=== PATIENT | female | born 1980 | race Caucasian/White ===

== ENCOUNTER → 2023-02-10 08:45 | Outpatient (BNV) | payer OTHER, SELFPAY | PROVIDERS: Visit Provider Nurse Practitioner Psychiatric/Mental Health | DX: F31.9 Bipolar disorder, unspecified (principal); F90.2 Attention-deficit hyperactivity disorder, combined type | CPT/HCPCS: 99213; 99214 ==

== ENCOUNTER 2023-02-11 11:33 | Outpatient (REF) | payer OTHER, SELFPAY | END 2023-02-11 11:34 | disposition home or self-care (01) | LOC: HO.PHPLNP 11:33 | PROVIDERS: Visit Provider Nurse Practitioner Psychiatric/Mental Health | DX: Z13.89 Encounter for screening for other disorder (principal) ==

== ENCOUNTER 2023-02-12 11:31 | Outpatient (REF) | payer OTHER, SELFPAY ==
[2023-02-12 12:43] LABS: Amphetamine Screen Urine Not Detected (Not Detect); Barbiturates, Urine Not Detected (Not Detect); Benzodiazepines Screen Urine Not Detected (Not Detect); Cannabinoid Screen Urine POSITIVE (Not Detect); Cocaine Screen Urine Not Detected (Not Detect); Fentanyl, urine Not Detected (Not Detect); Opiate Screen Urine Not Detected (Not Detect); Phencyclidine Screen Urine Not Detected (Not Detect)
== END 2023-02-12 11:32 | disposition home or self-care (01) ==
LOC: HO.PHPLNP 11:31
PROVIDERS: Visit Provider Nurse Practitioner Psychiatric/Mental Health
DX: F11.21 Opioid dependence, in remission (principal)
CPT/HCPCS: 80307

== ENCOUNTER 2023-03-19 09:30 | Outpatient (RCR) | payer OTHER, SELFPAY ==
--- NOTE | 2023-02-10 12:22 | HO.PS.ADMBH ---
[facility] Date of Service: 02/10/23 Chief Complaint: ADHD,depression Sources of Information: patient interviewed, chart reviewed and crisis/core team assessment reviewed HPI Medical Problems Affecting Mental Status: No Narrative: Integrated clinician assessment reviewed prior to meeting with patient. Patient is a 43-year-old female, history of depression and ADHD, possible bipolar mood disorder. Was first treated in an adolescent. No treatment for some time, currently engage with providers, been working with prescriber since July 2022. Referred to [facility] by her outpatient providers. Reports chronic symptoms of depression. Struggling with structure and organization skills. Difficulty with recent events, daughter turned 18, graduated high school, and will be leaving for college. Reports finding these changes difficult to cope with, that she no longer has a sense of purpose. No history of or current SI. No HI, no AH/VH. Had neuropsych testing completed in May 2022, found to meet criteria for ADHD, combined type. Also found to meet criteria for unspecified bipolar disorder, cannabis abuse. Not working, lives with parents. Describes her father, mother and stepfather as supportive. Has struggled throughout her adult life with school, employment. Also has fibromyalgia, chronic low back pain, generalized pain. Began working with outpatient psychiatric prescriber July 2022, has since been prescribed Wellbutrin and Concerta. Currently feels ?manic ?. Had difficulty with conversation, staying focused on topic, tangental, circumstantial, pressured rapid speech during interview. Has been started with quetiapine, reports this has been improving her sleep. Feels overall that her meds are effective, however is not sure if current doses/combination may be causing manic/hypomanic symptoms. Looking forward to participating in groups while here. Past Psychiatric History: Started Ritalin age 11, stopped after high school. Recently started with Concerta. No IP, no [facility] Psychiatric provider: Amanda [facility], Therapist: Kayley Borges, Med trials: Ritalin, Depakote, lamotrigine, BuSpar Medical Evaluation Reviewed: Yes [facility] Medical History (Updated 02/10/23 @ 15:30 by Digna No) Asthma Eczema Fibromyalgia GERD (gastroesophageal reflux disease) Major depressive disorder, recurrent, moderate Raynaud disease Rosacea Surgical History H/O bladder repair surgery Hx of cholecystectomy Family History: father: ADHD Social History: Raised by mother and adoptive father. Father remarried, has 3 half siblings. 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 Grad HS, Program completed as medical research associate. Substance History: History opioid use, percocets. Received methadone x7 years, stopped taking 2 years ago. Alcohol occasional use. Daily cannabis gummies. Trauma History: None reported Meds/Allergies Meds Home Medications Medication Instructions Recorded Confirmed Type bupropion HCl 300 mg 24 hr tablet, 300 mg PO QAM 02/10/23 02/10/23 History extended release cyclobenzaprine 5 mg tablet 5 mg PO TID 02/10/23 02/10/23 History duloxetine 60 mg capsule,delayed 60 mg PO BID 02/10/23 02/10/23 History release meloxicam 15 mg tablet 15 mg PO DAILY 02/10/23 02/10/23 History methylphenidate HCl 36 mg 36 mg PO QAM 02/10/23 02/10/23 History tablet,extended release 24 hr (Concerta) omeprazole 40 mg capsule,delayed 40 mg PO DAILY 02/10/23 02/10/23 History release pregabalin 300 mg capsule 300 mg PO BID 02/10/23 02/10/23 History quetiapine 200 mg tablet 200 mg PO BEDTIME 02/10/23 02/10/23 History quetiapine 50 mg tablet (Seroquel) 50 mg PO TID PRN Anxiety 02/10/23 02/10/23 History Allergies Allergies Allergy/AdvReac Type Severity Reaction Status Date / Time Iodinated Contrast Media Allergy Eye Verified 02/10/23 14:43 [IV Contrast Dye] Swelling Sulfa (Sulfonamide Allergy Unknown Verified 02/10/23 14:43 Antibiotics) Mental Status Exam Mental Status Exam Narrative: Well-developed, well-nourished, in NAD. A&O x4 General appearance, well groomed, appropriately dressed for season and age. Musculoskeletal: No involuntary movements noted, motor activity calm, posture within normal limits. Manner/behavior: Anxious, cooperative. Speech: Fluent, unimpaired, rapid, excessive, pressured. Mood: Anxious, manic Affect: Hypomanic, difficulty focusing on 1 topic at a time. Thought process/associations: Racing. Thought content: Circumstantial, flight of ideas. Delusions: None. Hallucinations: None. Suicidality/self destructive behavior: None. Homicidality/violence: none. Reliability: Good. Memory intact. Judgment: Fair Insight: Fair MSK exam: Normal ambulation, no cogwheeling or rigidity noted. Ability to Follow Directions: Good Assessment & Plan Assessment & Plan (1) Bipolar disorder, unspecified: Status: Acute Code(s): F31.9 - Bipolar disorder, unspecified Assessment and Plan: Patient is a 43-year-old female, history of depression, ADHD, anxiety. Referred to this program by her outpatient therapist and prescriber. Reports a history of chronic depression, feeling hopeless and helpless at times. Struggling currently due to daughter graduating from high school, going away to college. Feels that she is struggling to find a purpose. Reports that she has been struggling since adolescence with symptoms. Reports that at 1 point she did not leave her home for 2-3 years, several years ago. Reports that this started prior to COV, and was related to depression and anxiety symptoms. Lives with her mother and adoptive father, whom she describes as supportive. Also has relationship with her biological father, whom is also supportive. She has struggled with education and work. Has not worked since 2011. History of opioid use, Percocets. Received methadone x7 years, stopped 2 years ago. No current use of substances reported, except for daily cannabis gummy. During initial clinician intake had reported symptoms including feeling hopeless helpless, anhedonia, isolating, disrupted sleep, decreased appetite fluctuating with over eating. She had also reported poor concentration, feeling fidgety or restless. No SI, either active or passive. No history suicide attempts. Has chronic fibromyalgia, with pain. Today she denies depression, but feels as if she is manic/hypomanic. Received treatment as a teen, including with Ritalin, several mood stabilizers. Had a period of time throughout her adulthood with no treatment. Received neuropsych testing in May 2022, which states she meets criteria for ADHD combined type, unspecified bipolar disorder. She has begun working with her current providers in July 2022. Current medications include quetiapine 200 mg at bedtime, has an additional 50 mg t.i.d. p.r.n.. Patient was encouraged to take 100 mg tomorrow morning quetiapine. She currently takes Concerta 36 mg, also receives Wellbutrin 300 mg XL. Had cholecystectomy in May 2021, is questioning whether some symptoms have worsened since that time. Reports that she feels her cognitive function is limited, states that her ADHD symptoms are ?huge for me ?. Reports that she feels the symptoms have kept her from being as productive adult. She states that she has no friends, no hobbies. States that she does not really know who she is, or what she likes. She feels that since her daughter is moving away she is experiencing avoid, with increased anxiety. Patient currently prescribed 2 antidepressants. Reports that past several months she has felt hypomanic symptoms. MARIE has been obtained. T/C to outpatient provider Amanda Coy. Discussed current symptoms, diagnoses. Provider reports that patient currently is at baseline since she began working with her in late July. Discussed possible decrease Wellbutrin. Provider reports that patient has reported this medication has been helpful. Also discussed increasing dose quetiapine to help further mood stabilization. (2) Anxiety: Status: Acute Code(s): F41.9 - Anxiety disorder, unspecified (3) Attention-deficit hyperactivity disorder, combined type: Status: Acute Code(s): F90.2 - Attention-deficit hyperactivity disorder, combined type (4) Cannabis use, unspecified, uncomplicated: Status: Acute Code(s): F12.90 - Cannabis use, unspecified, uncomplicated (5) Opioid dependence, in remission: Status: Acute Code(s): F11.21 - Opioid dependence, in remission Plan 1. Continue with current [facility] plan of care. 2. Increase a.m. quetiapine to 100 mg daily start tomorrow morning. 3. Continue other medications as currently prescribed. 4. Options going forward include increasing quetiapine, decreasing Wellbutrin, or adding mood stabilizer such as Trileptal. 5. Follow-up as per protocol. Patient educated on: diagnosis, medication risk/benefits and therapeutic strategies Informed Consent: understands Reason for continued partial hosp. stay Substantial Risk for: inability to function, rapid decompensation and med/psych decompensation Certification I certify that partial hospital treatment is medically necessary due to the symptoms and problems resulting from the patient's mental illness and the failure to treat the patient at the partial hospital level of care would likely result in the patient requiring inpatient psychiatric care which could not be prevented at a less intensive level of care. Time Spent With Patient Time: Total time managing care of this patient today __60__ minutes.
[2023-02-10 13:11] VITALS: BP 108/74; PULSE 100; TEMP 37
[2023-02-10 13:28] VITALS: BMI 37.2
--- NOTE | 2023-02-10 14:24 | PC.ADMIT ---
Patient is a 43 year old female who was referred to [facility] her mental health prescriber d/t increased depression spending a lot of her time in bed. See Integrative Assessment for more information. During the nursing assessment patient presented with loud pressured speech. Appeared hypomanic. She reports feeling increased energy and has difficulty staying still. She report her thoughts are racing. She reports prior to this she was unable to get out of bed and now feels she is on the upside of things Reports feeling manic and has never been like this before. She reports she, knows things and has ideas but can't put them in action . Patient reports her Concerta 36 mg daily dose was decreased from 2 tabs back to one tab daily. Her Wellbutrin was increased from 150 mg to 300 mg. Vicki No CNP is aware and is increasing Seroquel dose. She report being on Cymbalta and Pregabalin for her Fibromyalgia which has been helpful since she is not taking Methadone or any other opiates for her pain. Patient stated she has been prescribed Opiates for fibromyalgia pain from age 17 up until her 30's. She stated it was difficult for her to get off the medications d/t withdrawal sxs. She also reports she was prescribed Methadone for 7 years as a result and was tappered off the Methadone about 2.5 years ago around March 2020 and had a difficult time getting off this medication as well d/t withdrawal sxs. She talked about not feeling right since her gallbadder surgery. It was difficult to follow her conversation at times d/t pressured speech and going from topic to topic. Patient is alert and oriented x4. She presented as hypomanic. Denied SI or thoughts to harm herself or others. She received a copy of her safety plan and I reviewed this with her if needed. Medications reconciled with patient and patient's pharmacy. She reports taking medications as prescribed. Patient is living with her parents and 18 year old daughter who is going to college. Patient having a difficult time adjusting to this. Patient reports the last time she was employed was in 2011 and would like to be able to work at some point in her life.
--- NOTE | 2023-02-13 07:32 | HO.PHP ---
The clients case was reviewed and opened in treatment team
--- NOTE | 2023-02-13 10:03 | P.PNPSP_ITS ---
Subjective Subjective Date of Service: 02/13/23 Reason For Visit: ADHD,depression Medical Problems Affecting Mental Status: No Interim History: Reports feeling more stable, find the 100 mg quetiapine in a.m. helpful. Feels less weighed down, finding program helpful. Wants to continue to focus on coping skills and structure. No SI, no safety concerns. Continues to struggle with ADHD symptoms, finds herself lost in thoughts, difficulty carrying out an completing tasks. Medication Compliance: Intermittent (For got bedtime dose Seroquel twice earlier in week.) Side effects from medications: No Attending Groups: Yes Review of Systems Acute medical concerns: No Medical Review of Systems: unchanged Review of Systems Review of Systems Yes all other systems are reviewed and are negative Constitutional: Reports no additional constitutional complaints Mental Status Exam Mental Status Exam Narrative: Well-developed, well-nourished, in NAD. A&O x4 General appearance, well groomed, appropriately dressed for season and age. Musculoskeletal: No involuntary movements noted, motor activity calm, posture within normal limits. Manner/behavior: Anxious, cooperative. Speech: Fluent, unimpaired, excessive at times. Mood: Slightly anxious Affect: Less hypomanic, some anxiety Thought process/associations: Normal, feels though that she is getting lost in thoughts at times Thought content: Linear Delusions: None. Hallucinations: None. Suicidality/self destructive behavior: None. Homicidality/violence: none. Reliability: Good. Memory intact. Judgment: Fair Insight: Fair MSK exam: Normal ambulation, no cogwheeling or rigidity noted. Ability to Follow Directions: Good Diagnostics Vital Signs (24Hr): BMI result Body Mass Index 37.2 Assessment & Plan Assessment & Plan (1) Bipolar disorder, unspecified: Status: Acute Code(s): F31.9 - Bipolar disorder, unspecified Assessment and Plan: Reports feeling more stable, find the 100 mg quetiapine in a.m. helpful. Discussed importance of taking quetiapine 100 in the morning, 200 at bedtime, in order to further stabilize mood. Continues to have 50 mg quetiapine available as a p.r.n. during day if needed. Reviewed this medication scheduled with patient. Feels less weighed down, less depressed. Finding the Wellbutrin extremely helpful. Wants to continue to focus on coping skills and structure. States that now that her daughter is an adult and going away to college, she wants to focus on a how better to structure her day, figure out her own goals in her life going forward. No SI, no safety concerns. Continues to struggle with ADHD symptoms, finds herself lost in thoughts, difficulty carrying out an completing tasks. Recommended increasing Concerta, she was agreeable. She had taken 72 mg in the past, found it to higher dose. Discussed trying 54 mg daily. (2) Attention-deficit hyperactivity disorder, combined type: Status: Acute Code(s): F90.2 - Attention-deficit hyperactivity disorder, combined type Plan 1. Continue with current [facility] plan of care. 2. Increase concerta to 54mg daily. 3. Follow-up as per protocol. Patient educated on: diagnosis, medication risk/benefits and therapeutic strategies Informed Consent: understands Reason for contiued partial hosp. stay Substantial Risk for: inability to function and rapid decompensation Certification I certify that partial hospital treatment is medically necessary due to the sym ptoms and problems resulting from the patient's mental illness and the failure to treat the patient at the partial hospital level of care would likely result in the patient requiring inpatient psychiatric care which could not be prevented at a less intensive level of care. Total time managing care of this patient today __20__ minutes. Discharge Plan Discharge Attending provider: Ryan Kauffman Medications: New methylphenidate HCl [Concerta] 54 mg tablet extended release 24hr 54 mg PO DAILY Qty: 7 0RF Discontinued methylphenidate HCl [Concerta] 36 mg tablet extended release 24hr 36 mg PO QAM Patient Comments: Patient stated her prescriber decreased the dose from 2 tabs to 1 tab daily. No Action meloxicam 15 mg tablet 15 mg PO DAILY quetiapine 200 mg tablet 200 mg PO BEDTIME bupropion HCl 300 mg tablet extended release 24 hr 300 mg PO QAM duloxetine 60 mg capsule,delayed release(DR/EC) 60 mg PO BID pregabalin 300 mg capsule 300 mg PO BID quetiapine [Seroquel] 50 mg Tablet 50 mg PO TID PRN (Reason: Anxiety) omeprazole 40 mg capsule,delayed release(DR/EC) 40 mg PO DAILY cyclobenzaprine 5 mg tablet 5 mg PO TID
--- NOTE | 2023-02-18 09:45 | HO.PHP ---
I called and left a message for Kayley Borges [facility] re clients attending and progress in the program.
--- NOTE | 2023-02-19 12:36 | P.PNPSP_ITS ---
Subjective Subjective Date of Service: 02/19/23 Reason For Visit: ADHD,depression Interim History: Reports feeling more stable,less pressured, decreased racing thoughts; but still struggles with feeling anxious, poor concetration, easily distracted, not finishing tasks or example she will wash, dry and fold laundry or hang it up but then leave it for laong periods without putting it awazay; pt still with moderately pressured speech and overally detailed explanations.. find the 100 mg quetiapine in a.m and 200mg at bedtime helpful. She is tolerating the oncerease in concerta to 54mg. she reports it has calmed her down and she has more control over her hyperactivity and hyperverbal presentation. finding program helpful. Wants to continue to focus on coping skills and structure. No SI, no safety concerns. Continues to struggle with ADHD symptoms, finds herself lost in thoughts, difficulty carrying out an completing tasks. Medication Compliance: Yes Side effects from medications: No Attending Groups: Yes Review of Systems Acute medical concerns: No Medical Review of Systems: unchanged Review of Systems Review of Systems no changes Yes all other systems are reviewed and are negative Constitutional: Reports no additional constitutional complaints Mental Status Exam Mental Status Exam Narrative: Well-developed, well-nourished, in NAD. A&O x4 General appearance, well groomed, appropriately dressed for season and age. Musculoskeletal: No involuntary movements noted, motor activity calm, posture within normal limits. Manner/behavior: Anxious, cooperative. Speech: Fluent, unimpaired, excessive at times. Mood: Slightly anxious Affect: Less hypomanic, some anxiety Thought process/associations: Normal, feels though that she is getting lost in thoughts at times Thought content: Linear Delusions: None. Hallucinations: None. Suicidality/self destructive behavior: None. Homicidality/violence: none. Reliability: Good. Memory intact. Judgment: Fair Insight: Fair MSK exam: Normal ambulation, no cogwheeling or rigidity noted. Ability to Follow Directions: Good Diagnostics Vital Signs (24Hr): BMI result Body Mass Index 37.2 Assessment & Plan Assessment & Plan (1) Bipolar disorder, unspecified: Status: Acute Code(s): F31.9 - Bipolar disorder, unspecified Assessment and Plan: Discussed taking quetiapine 100 in the morning, 50mg at noon and 200 at bedtime, in order to further stabilize mood. Continues to have 50 mg quetiapine available as a p.r.n. during day if needed. Reviewed this medication scheduled with patient. She feels she will be able to take TID and that this would be helpful for anxiety/mood. Feels less depressed. Finding the Wellbutrin extremely helpful. Wants to continue to focus on coping skills and structure. States that now that her daughter is an adult and going away to college, she wants to focus on a how better to structure her day, figure out her own goals in her life going forward. No SI, no safety concerns. Continues to struggle with ADHD symptoms, finds herself lost in thoughts, difficulty carrying out an completing tasks. She had taken concerta 72 mg in the past, found it too high of a dose. (2) Attention-deficit hyperactivity disorder, combined type: Status: Acute Code(s): F90.2 - Attention-deficit hyperactivity disorder, combined type Plan 1. Continue with current [facility] plan of care. 2. Increase seroqule to 100mg in am , 50 mg at noon and 200mg at bedtime 3. Follow-up as per protocol. Patient educated on: diagnosis, medication risk/benefits and therapeutic strategies Informed Consent: understands and further education needed Reason for contiued partial hosp. stay Substantial Risk for: harm to self, inability to function and rapid decompensation Certification I certify that partial hospital treatment is medically necessary due to the symptoms and problems resulting from the patient's mental illness and the failure to treat the patient at the partial hospital level of care would likely result in the patient requiring inpatient psychiatric care which could not be prevented at a less intensive level of care. Total time managing care of this patient today __50__ minutes. Discharge Plan Discharge Attending provider: Ryan Kauffman Medications: New methylphenidate HCl [Concerta] 54 mg tablet extended release 24hr 54 mg PO DAILY Qty: 7 0RF quetiapine [Seroquel] 50 mg tablet 50 mg PO TID Qty: 90 0RF Discontinued methylphenidate HCl [Concerta] 36 mg tablet extended release 24hr 36 mg PO QAM Patient Comments: Patient stated her prescriber decreased the dose from 2 tabs to 1 tab daily. No Action meloxicam 15 mg tablet 15 mg PO DAILY quetiapine 200 mg tablet 200 mg PO BEDTIME bupropion HCl 300 mg tablet extended release 24 hr 300 mg PO QAM duloxetine 60 mg capsule,delayed release(DR/EC) 60 mg PO BID pregabalin 300 mg capsule 300 mg PO BID quetiapine [Seroquel] 50 mg Tablet 50 mg PO TID PRN (Reason: Anxiety) omeprazole 40 mg capsule,delayed release(DR/EC) 40 mg PO DAILY cyclobenzaprine 5 mg tablet 5 mg PO TID Stand Alone Forms: Patient Portal Discharge page
--- NOTE | 2023-02-24 16:42 | HO.PHP ---
PHP staff met with Tricia to review her insurance. PHP staff informed Tricia that she currently has [employer] but no longer has [employer]. PHP staff explored if Tricia was aware of this. Tricia noted that she wasn't aware and wasn't sure if it had something to do with her daughter being removed from her plan. Tricia noted that she would have her mother contact the insurance company to get clarification. Tricia informed PHP staff that her mother spoke to the insurance company and relayed the same information the PHP staff member stated. PHP staff disclosed her [employer] is still active but she needs to pick a plan under that [employer] umbrella. PHP staff provided psychoeducation around the insurance companies under that umbrella. Tricia was receptive and stated that she will call [facility] after program to set up a plan. PHP staff was receptive.
--- NOTE | 2023-02-26 14:06 | HO.PHPPROGNO ---
Subjective Subjective Date of Service: 02/26/23 Reason For Visit: ADHD,depression Interim History: Reports feeling more stable,less pressured, decreased racing thoughts; but still struggles with feeling anxious, poor concentration, easily distracted, not finishing tasks. she reports the increasse in seroqule helped her mood and the increase in concerta helped ADHD symptoms including distractibility, forgetfulness and hyperactivity. she would like to try an increase in both as she feels it may be more helpful. she tells me she locked her keys in her car last week despite taking the concerta; she also was forgetful at imes and easily distracted; She is tolerating the increase in concerta to 54mg. she reports it has calmed her down and she has more control over her hyperactivity and hyperverbal presentation. she is finding program helpful. Wants to continue to focus on coping skills and structure. No SI, no safety concerns. Continues to struggle with ADHD symptoms, finds herself lost in thoughts, difficulty carrying out and completing tasks. Medication Compliance: Yes Side effects from medications: No Attending Groups: Yes Review of Systems Acute medical concerns: No Medical Review of Systems: unchanged Review of Systems Review of Systems no changes Yes all other systems are reviewed and are negative Constitutional: Reports no additional constitutional complaints Mental Status Exam Mental Status Exam Narrative: Well-developed, well-nourished, in NAD. A&O x4 General appearance, well groomed, appropriately dressed for season and age. Musculoskeletal: No involuntary movements noted, motor activity calm, posture within normal limits. Manner/behavior: Anxious, cooperative. Speech: Fluent, unimpaired, excessive at times. Mood: Slightly anxious Affect: Less hypomanic, some anxiety Thought process/associations: Normal, feels though that she is getting lost in thoughts at times Thought content: Linear Delusions: None. Hallucinations: None. Suicidality/self destructive behavior: None. Homicidality/violence: none. Reliability: Good. Memory intact. Judgment: Fair Insight: Fair MSK exam: Normal ambulation, no cogwheeling or rigidity noted. Ability to Follow Directions: Good Diagnostics Vital Signs (24Hr): BMI result Body Mass Index 37.2 Assessment & Plan Assessment & Plan (1) Bipolar disorder, unspecified: Status: Acute Code(s): F31.9 - Bipolar disorder, unspecified Assessment and Plan: Discussed taking quetiapine 100 in the morning, 100mg at noon and 200 at bedtime, in order to further stabilize mood. Continues to have 50 mg quetiapine available as a p.r.n. during day if needed. Reviewed this medication scheduled with patient. She feels she will be able to take TID and that this would be helpful for anxiety/mood. Feels less depressed. Finding the Wellbutrin extremely helpful. Wants to continue to focus on coping skills and structure. States that now that her daughter is an adult and going away to college, she wants to focus on a how better to structure her day, figure out her own goals in her life going forward. No SI, no safety concerns. Continues to struggle with ADHD symptoms, finds herself lost in thoughts, difficulty carrying out an completing tasks. She had taken concerta 72 mg in the past, found it too high of a dose but she was not on mood stabilizer at the time. (2) Attention-deficit hyperactivity disorder, combined type: Status: Acute Code(s): F90.2 - Attention-deficit hyperactivity disorder, combined type Plan 1. Continue with current [facility] plan of care. 2. Increase seroqule to 100mg in am, 100 mg at noon and 200mg at bedtime 3. increase concerta to 72 mg qam 4. Follow-up as per protocol. Patient educated on: diagnosis, medication risk/benefits and therapeutic strategies Informed Consent: understands and further education needed Certification I certify that partial hospital treatment is medically necessary due to the symptoms and problems resulting from the patient's mental illness and the failure to treat the patient at the partial hospital level of care would likely result in the patient requiring inpatient psychiatric care which could not be prevented at a less intensive level of care. Total time managing care of this patient today ___40_ minutes. Discharge Plan Discharge Attending provider: Ryan Kauffman Medications: New quetiapine [Seroquel] 50 mg tablet 50 mg PO TID Qty: 90 0RF methylphenidate HCl [Concerta] 36 mg tablet extended release 24hr 72 mg PO DAILY Qty: 40 0RF Rx Instructions: Partial Fill upon patient request. Discontinued methylphenidate HCl [Concerta] 36 mg tablet extended release 24hr 36 mg PO QAM Patient Comments: Patient stated her prescriber decreased the dose from 2 tabs to 1 tab daily. No Action meloxicam 15 mg tablet 15 mg PO DAILY quetiapine 200 mg tablet 200 mg PO BEDTIME bupropion HCl 300 mg tablet extended release 24 hr 300 mg PO QAM duloxetine 60 mg capsule,delayed release(DR/EC) 60 mg PO BID pregabalin 300 mg capsule 300 mg PO BID quetiapine [Seroquel] 50 mg Tablet 50 mg PO TID PRN (Reason: Anxiety) omeprazole 40 mg capsule,delayed release(DR/EC) 40 mg PO DAILY cyclobenzaprine 5 mg tablet 5 mg PO TID Stand Alone Forms: Patient Portal Discharge page
--- NOTE | 2023-02-27 14:21 | PC.NURSE ---
This RN was notified by patient that she will run out of Seroquel this weekend. Patient states per MEDICAL INTERN instruction yesterday 02/26/23 she was to increase her scheduled Seroquel to 100mg twice daily take in AM and afternoon and continue with 200mg dose at bedtime. This RN notified Nancy Stanford NP who had seen patient on 02/26/23 and MEDICAL INTERN confirmed those increases and will send scripts to pharmacy today. Patient medication list updated.
--- NOTE | 2023-03-05 21:13 | P.PNPSP_ITS ---
Subjective Subjective Date of Service: 03/05/23 Reason For Visit: ADHD,depression Healthcare Proxy: No Guardianship: No Medical Problems Affecting Mental Status: No Interim History: Reports feeling more stable,less pressured, decreased racing thoughts;she presents much calmer. she is less anxious. She is still struggling with poor concentration, easily distracted, not finishing tasks. She is very forgetful. she is tolerating the concerta but the increase has not seemed to help her focus or concentration. concerta helped a little with ADHD symptoms including distractibility, forgetfulness and hyperactivity.She wonders if a change in medicatio may help her ADHD more. she is finding program helpful. Wants to continue to focus on coping skills and structure. No SI, no safety concerns. Continues to struggle with ADHD symptoms, finds herself lost in thoughts, difficulty carrying out and completing tasks. Medication Compliance: Yes Side effects from medications: No Attending Groups: Yes Review of Systems Acute medical concerns: No Medical Review of Systems: unchanged Review of Systems Review of Systems no changes Yes all other systems are reviewed and are negative Constitutional: Reports no additional constitutional complaints Mental Status Exam Mental Status Exam Narrative: Well-developed, well-nourished, in NAD. A&O x4 General appearance, well groomed, appropriately dressed for season and age. Musculoskeletal: No involuntary movements noted, motor activity calm, posture within normal limits. Manner/behavior: calm, cooperative. Speech: Fluent, unimpaired, excessive at times. Mood: euthymic Affect:normal range; no hypomania Thought process/associations: Normal, feels though that she is getting lost in thoughts at times Thought content: Linear Delusions: None. Hallucinations: None. Suicidality/self destructive behavior: None. Homicidality/violence: none. Reliability: Good. Memory intact. Judgment: Fair Insight: Fair MSK exam: Normal ambulation, no cogwheeling or rigidity noted. Ability to Follow Directions: Good Diagnostics Vital Signs (24Hr): BMI result Body Mass Index 37.2 Assessment & Plan Assessment & Plan (1) Bipolar disorder, unspecified: Status: Acute Code(s): F31.9 - Bipolar disorder, unspecified Assessment and Plan: assessment: 43 yo woman with bipolar disorder and ADHD; taking quetiapine 100 in the morning, 100mg at noon and 200 at bedtime, in order to further stabilize mood. Continues to have 50 mg quetiapine available as a p.r.n. during day if needed. Reviewed this medication scheduled with patient. She feels she will be able to take TID and that this would be helpful for anxiety/mood. Feels less depressed. Finding the Wellbutrin extremely helpful. Wants to continue to focus on coping skills and structure. States that now that her daughter is an adult and going away to college, she wants to focus on a how better to structure her day, figure out her own goals in her life going forward. No SI, no safety concerns.Continues to struggle with ADHD symptoms, finds herself lost in thoughts, difficulty carrying out an completing tasks. Discussed options for ADHD treatment including risks vs benefits of adderall. (2) Attention-deficit hyperactivity disorder, combined type: Status: Acute Code(s): F90.2 - Attention-deficit hyperactivity disorder, combined type Plan 1. Continue with current [facility] plan of care. 2. Continue seroqule to 100mg in am, 100 mg at noon and 200mg at bedtime 3.stop concerta to 72 mg qam 4. trial of adderall 10 mg BID 4. Follow-up as per protocol. Patient educated on: diagnosis, medication risk/benefits and therapeutic strategies Informed Consent: understands and further education needed Reason for contiued partial hosp. stay Substantial Risk for: harm to self, inability to function and rapid decompensation Certification I certify that partial hospital treatment is medically necessary due to the symptoms and problems resulting from the patient's mental illness and the failure to treat the patient at the partial hospital level of care would likely result in the patient requiring inpatient psychiatric care which could not be prevented at a less intensive level of care. Total time managing care of this patient today __15__ minutes. Discharge Plan Discharge Attending provider: Ryan Kauffman Additional Instructions: Kayley Borges LM 03/24, Amanda Coy NP 04/01 Medications: New quetiapine [Seroquel XR] 150 mg tablet extended release 24 hr 150 mg PO BEDTIME Qty: 30 0RF Discontinued methylphenidate HCl [Concerta] 36 mg tablet extended release 24hr 36 mg PO QAM Patient Comments: Patient stated her prescriber decreased the dose from 2 tabs to 1 tab daily. quetiapine [Seroquel] 50 mg Tablet 50 mg PO TID PRN (Reason: Anxiety) No Action meloxicam 15 mg tablet 15 mg PO DAILY quetiapine 200 mg tablet 200 mg PO BEDTIME bupropion HCl 300 mg tablet extended release 24 hr 300 mg PO QAM duloxetine 60 mg capsule,delayed release(DR/EC) 60 mg PO BID pregabalin 300 mg capsule 300 mg PO BID omeprazole 40 mg capsule,delayed release(DR/EC) 40 mg PO DAILY cyclobenzaprine 5 mg tablet 5 mg PO TID Stand Alone Forms: Patient Portal Discharge page Patient Education: Bipolar Disorder (DC), Generalized Anxiety Disorder (ED), Help Prevent Suicide (DC), Psychotic Disorder (DC) Telehealth Telehealth Location of provider rendering services: other Location of patient: other ([facility] ) Patient Identification confirmed using: Name, : Yes Telehealth method: video Patient verbally consented to treatment: Yes Patient verbally consented to billing insurance company: Yes Patient informed of any privacy concerns related to visit: Yes Minutes spent on Phone/Video with Pt.: 15
--- NOTE | 2023-03-10 14:13 | HO.PHP ---
I met with the client this morning to discuss her discharge plans. She has not heard from Aleksey Naqvi. I did email a referral to him last week. We talked about her plans to stay with her therapist and to ask her therapist to work with CBT handouts. I then called Aleksey Naqvi and his co worker and left both a vm to call me back regarding the referral.
--- NOTE | 2023-03-10 14:17 | HO.PHP ---
I met with Tricia this afternoon to discuss extending her stay because her medication is being titrated and because she does not yet have an appointment for day treatment.
--- NOTE | 2023-03-12 08:16 | HO.PHP ---
I resent a referral to Aleksey Naqvi for day treatment at the [facility]
--- NOTE | 2023-03-12 10:27 | HO.PHPPROGNO ---
Subjective Subjective Date of Service: 03/12/23 Reason For Visit: ADHD,depression Healthcare Proxy: No Guardianship: No Medical Problems Affecting Mental Status: No Interim History: pt tried adderall IR 10 mg was ineffective but 20 mg BID was more helpful without side effects; she has been able to stay focused more easily; she has been finishing task more esily; finally washed, foled and put away laundry which she has nto done in months. she does feel the seroquel is a bit more sedating and wonders about switching to XR. we discussed pros and cons of IR vs XR seroqule and expected side effects and duration. we also discussed switch pt to XR adderall with a IR dose inlate afternoon if needed; we reviewed side effects and how to manage including using sun block, staying hydrated and having access to cooling environment when hot temps outdoors. Medication Compliance: Yes Side effects from medications: No Attending Groups: Yes Review of Systems Acute medical concerns: No Medical Review of Systems: unchanged Review of Systems Review of Systems no changes Yes all other systems are reviewed and are negative Constitutional: Reports no additional constitutional complaints Mental Status Exam Mental Status Exam Narrative: Well-developed, well-nourished, in NAD. A&O x4 General appearance, well groomed, appropriately dressed for season and age. Musculoskeletal: No involuntary movements noted, motor activity calm, posture within normal limits. Manner/behavior: calm, cooperative. Speech: Fluent, unimpaired, excessive at times. Mood: euthymic Affect:normal range; no hypomania Thought process/associations: Normal, feels though that she is getting lost in thoughts at times Thought content: Linear Delusions: None. Hallucinations: None. Suicidality/self destructive behavior: None. Homicidality/violence: none. Reliability: Good. Memory intact. Judgment:good Insight: good MSK exam: Normal ambulation, no cogwheeling or rigidity noted. Ability to Follow Directions: Good Diagnostics Vital Signs (24Hr): BMI result Body Mass Index 37.2 Assessment & Plan Assessment & Plan (1) Bipolar disorder, unspecified: Status: Acute Code(s): F31.9 - Bipolar disorder, unspecified Assessment and Plan: assessment: 43 yo woman with bipolar disorder and ADHD; taking quetiapine 100 in the morning, 100mg at noon and 200 at bedtime, in order to further stabilize mood. Continues to have 50 mg quetiapine available as a p.r.n. during day if needed. Reviewed this medication scheduled with patient. She feels taking meds TID is difficult Feels less depressed. Finding the Wellbutrin extremely helpful. Wants to continue to focus on coping skills and structure. States that now that her daughter is an adult and going away to college, she wants to focus on a how better to structure her day, figure out her own goals in her life going forward. No SI, no safety concerns.Continues to struggle with ADHD symptoms, finds herself lost in thoughts, difficulty carrying out an completing tasks. Discussed options for ADHD treatment including risks vs benefits of adderall. (2) Attention-deficit hyperactivity disorder, combined type: Status: Acute Code(s): F90.2 - Attention-deficit hyperactivity disorder, combined type Plan 1. Continue with current [facility] plan of care. 2. take seroqule XR 150 mg at bedtime and seroqule IR 200mg at bedtime 3.change adderall to XR 30mf in am daily 4. add adderall 15 mg at 4pm if needed for adhd symptoms . Follow-up as per protocol. Patient educated on: diagnosis, medication risk/benefits and therapeutic strategies Informed Consent: understands and further education needed Reason for contiued partial hosp. stay Substantial Risk for: inability to function and rapid decompensation Certification I certify that partial hospital treatment is medically necessary due to the symptoms and problems resulting from the patient's mental illness and the failure to treat the patient at the partial hospital level of care would likely result in the patient requiring inpatient psychiatric care which could not be prevented at a less intensive level of care. Total time managing care of this patient today _30___ minutes. Discharge Plan Discharge Attending provider: Ryan Kauffman Additional Instructions: Kayley Borges [facility] 03/24, Amanda Coy [employer]ENG[employer] APPRENTICE 04/01 Medications: New quetiapine [Seroquel XR] 150 mg tablet extended release 24 hr 150 mg PO BEDTIME Qty: 30 0RF Discontinued methylphenidate HCl [Concerta] 36 mg tablet extended release 24hr 36 mg PO QAM Patient Comments: Patient stated her prescriber decreased the dose from 2 tabs to 1 tab daily. quetiapine [Seroquel] 50 mg Tablet 50 mg PO TID PRN (Reason: Anxiety) No Action meloxicam 15 mg tablet 15 mg PO DAILY quetiapine 200 mg tablet 200 mg PO BEDTIME bupropion HCl 300 mg tablet extended release 24 hr 300 mg PO QAM duloxetine 60 mg capsule,delayed release(DR/EC) 60 mg PO BID pregabalin 300 mg capsule 300 mg PO BID omeprazole 40 mg capsule,delayed release(DR/EC) 40 mg PO DAILY cyclobenzaprine 5 mg tablet 5 mg PO TID Stand Alone Forms: Patient Portal Discharge page Patient Education: Bipolar Disorder (DC), Generalized Anxiety Disorder (ED), Help Prevent Suicide (DC), Psychotic Disorder (DC)
--- NOTE | 2023-03-19 13:37 | P.PNPSP_ITS ---
Subjective Subjective Date of Service: 03/19/23 Reason For Visit: ADHD,depression Interim History: pt taking adderall XR 30 mg QAM and 15 mg IR adderall at 4 pm when she remembers. she is still struggling wit ADHD symptoms; she has missed [place] exit due [place] when driving, she has locked her keys in car twice, she has forgotten things she needs when she leaves her home in the morning. She is doing well on the seroqule with improved mood stability. no side effects reported; she would like to trial Focalin which we talked about as an option. she will follow up with outpatient provider. we reviewed side effects and how to manage including using sun block, staying hydrated and having access to cooling environment when hot temps outdoors. She is feeling ready for discharge. Medication Compliance: Yes Side effects from medications: No Attending Groups: Yes Review of Systems Acute medical concerns: No Medical Review of Systems: unchanged Review of Systems Review of Systems no changes Yes all other systems are reviewed and are negative Constitutional: Reports no additional constitutional complaints Mental Status Exam Mental Status Exam Narrative: Well-developed, well-nourished, in NAD. A&O x4 General appearance, well groomed, appropriately dressed for season and age. Musculoskeletal: No involuntary movements noted, motor activity calm, posture within normal limits. Manner/behavior: calm, cooperative. Speech: Fluent, unimpaired, excessive at times. Mood: euthymic Affect:normal range; no hypomania Thought process/associations: Normal, feels though that she is getting lost in thoughts at times Thought content: Linear Delusions: None. Hallucinations: None. Suicidality/self destructive behavior: None. Homicidality/violence: none. Reliability: Good. Memory intact. Judgment:good Insight: good MSK exam: Normal ambulation, no cogwheeling or rigidity noted. Ability to Follow Directions: Good Diagnostics Vital Signs (24Hr): BMI result Body Mass Index 37.2 Assessment & Plan Assessment & Plan (1) Bipolar disorder, unspecified: Status: Acute Code(s): F31.9 - Bipolar disorder, unspecified Assessment and Plan: assessment: 43 yo woman with bipolar disorder and ADHD; taking quetiapine 100 in the morning, 100mg at noon and 200 at bedtime, in order to further stabilize mood. Continues to have 50 mg quetiapine available as a p.r.n. during day if needed. Reviewed this medication scheduled with patient. She feels taking meds TID is difficult Feels less depressed. Finding the Wellbutrin extremely helpful. Wants to continue to focus on coping skills and structure. States that now that her daughter is an adult and going away to college, she wants to focus on a how better to structure her day, figure out her own goals in her life going forward. No SI, no safety concerns.Continues to struggle with ADHD symptoms, finds herself lost in thoughts, difficulty carrying out an completing tasks. Discussed options for ADHD treatment including risks vs benefits of adderall. (2) Attention-deficit hyperactivity disorder, combined type: Status: Acute Code(s): F90.2 - Attention-deficit hyperactivity disorder, combined type Plan 1. Continue with current [facility] plan of care. 2. take seroqule XR 150 mg at bedtime and seroqule IR 200mg at bedtime 3.stop adderall 4. Trial Focalin XR 35 mg qam for adhd symptoms 5. Follow-up with outpatient provider . Patient educated on: diagnosis, medication risk/benefits and therapeutic strategies Informed Consent: understands Reason for contiued partial hosp. stay Substantial Risk for: stable for discharge Certification I certify that partial hospital treatment is medically necessary due to the symptoms and problems resulting from the patient's mental illness and the failure to treat the patient at the partial hospital level of care would likely result in the patient requiring inpatient psychiatric care which could not be prevented at a less intensive level of care. Total time managing care of this patient today __45__ minutes. Discharge Plan Discharge Attending provider: Ryan Kauffman Additional Instructions: Kayley Borges [facility] 03/24, Amanda Coy [employer] 04/01 Medications: New quetiapine [Seroquel XR] 150 mg tablet extended release 24 hr 150 mg PO BEDTIME Qty: 30 0RF Discontinued methylphenidate HCl [Concerta] 36 mg tablet extended release 24hr 36 mg PO QAM Patient Comments: Patient stated her prescriber decreased the dose from 2 tabs to 1 tab daily. quetiapine [Seroquel] 50 mg Tablet 50 mg PO TID PRN (Reason: Anxiety) No Action meloxicam 15 mg tablet 15 mg PO DAILY quetiapine 200 mg tablet 200 mg PO BEDTIME bupropion HCl 300 mg tablet extended release 24 hr 300 mg PO QAM duloxetine 60 mg capsule,delayed release(DR/EC) 60 mg PO BID pregabalin 300 mg capsule 300 mg PO BID omeprazole 40 mg capsule,delayed release(DR/EC) 40 mg PO DAILY cyclobenzaprine 5 mg tablet 5 mg PO TID Stand Alone Forms: Patient Portal Discharge page Patient Education: Bipolar Disorder (DC), Generalized Anxiety Disorder (ED), Help Prevent Suicide (DC), Psychotic Disorder (DC)
--- NOTE | 2023-03-20 17:17 | HO.PHP ---
I completed a form Tricia neville in that needed a jump iron machine presser to sign. It was part of her disability paperwork.
--- NOTE | 2023-03-20 17:19 | HO.PHP ---
I called and left a message with the clients therapist re discharge from program and dc plans.
--- NOTE | 2023-03-23 10:13 | PC.NURSE ---
Patient discharged from [facility] on 03/19/23. Discharge routine, patient states she is ready for discharge. Patient denies SI, no plan and no intent. Patient seen today by Jazz Barreto NP. Discharge plan including discharge medications reviewed with patient who states understanding. Patient discharged to out patient providers. List of discharged medications sent to out patient providers.
== END 2023-03-19 23:59 | disposition home or self-care (01) ==
LOC: HO.PHPA 09:30
PROVIDERS: Visit Provider Psychiatry & Neurology Psychiatry
DX: F31.9 Bipolar disorder, unspecified (principal); F41.9 Anxiety disorder, unspecified; F90.2 Attention-deficit hyperactivity disorder, combined type; F12.90 Cannabis use, unspecified, uncomplicated; F11.21 Opioid dependence, in remission; Z79.899 Other long term (current) drug therapy
CPT/HCPCS: 90791; 90853

== ENCOUNTER 2025-08-03 10:30 | Outpatient (RCR) | payer OTHER, SELFPAY ==
[2025-07-17 09:49] VITALS: BMI 31.6
[2025-07-17 10:18] VITALS: BP 80/58; PULSE 80; TEMP 36.7
--- NOTE | 2025-07-17 11:51 | HO.PS.ADMBH ---
HPI Date of Service: 07/17/25 Chief Complaint: ADHD,depression,panic attacks Sources of Information: patient interviewed, chart reviewed and crisis/core team assessment reviewed HPI Narrative: Patient is a 45 yo female with history depression and ADHD, possible bipolar mood disorder, fibromyalgia, medical marijuana, referred to PHP by her therapist/med provider due to persistent panic attacks. She has been on risperidone for many years at 2 mg qhs to target Bipolar disorder, PTSD. Over the summer she began waking during the night in a panic attack (feeling restless, chest tightness, SOB, paliptations) about 2 hrs after onset of sleep. These eventually abated, but started occurring randomly during the day. Sometimes she feels she is in a panic attack for many hours and sometimes the whole day. Reports having considerable anticipitory anxiety over potentially having a panic attack. Her provider reportedly has her taking 1 mg q 2 hours x 2 doses, and 2 mg after 20 min into panic attack. She reportedly takes all 4 mg of risperidone within a short period. They seem shorter but I dont feel any better . She would be open to taking something and has taken clonazepam in the past which was helpful although her provider has not been open to this and encourages her to utilize coping skills and desnsitization practices. Initial Assessment reviewed with patient, including HPI, PPH, SH, Substance use hx,Trauma hx,? please refer to note for full details. Patient has a history of chronic symptoms of depression and has struggles with low energy and obesity. She reports losing over 100 lbs of weight over the past. She lost a lot of weight over the summer as well (and I mention perhaps these panic attacks may have been triggered by maintaining current dose of 2 mg risperidone without change, despite steep weight loss. She also complains of truggles with structure and organization skills. No history of or current SI. No HI, no AH/VH. Had neuropsych testing completed in May 2022, found to meet criteria for ADHD, combined type. Also found to meet criteria for unspecified bipolar disorder, cannabis abuse. Has struggled throughout her adult life with school, employment. Also has fibromyalgia, chronic low back pain, generalized pain. Was on methadone 7 years but this was stopped when her provider left the office about 4 5 years ago. She is now on Suboxone more recently for for pain management. Past Psychiatric History: Started Ritalin age 11, stopped after high school. Recently started with Concerta. No IP, no PHP Psychiatric provider: Amanda Coy, [facility], Therapist: Kayley Borges, Med trials: Ritalin, Depakote, lamotrigine, BuSpar Previous trials: Trazodone, Effexor, Cymbalta, BuSpar, Wellbutrin, lamotrigine, Depakote, Seroquel, Risperdal, Savella, clonidine, lorazepam, clonazepam, gabapentin, Lyrica CURRENT MEDICATIONS: [facility] Medical History (Updated 02/19/23 @ 08:37 by Deanna iMjares RN) Spasmodic torticollis Migraine Hyperlipidemia with low HDL Major depressive disorder, recurrent, moderate Rosacea Asthma GERD (gastroesophageal reflux disease) Eczema Raynaud disease Fibromyalgia Narrative: On GLP-1 for obesity Surgeries: s/p resection of polymastia in 03/2005, s/p bone spurs Seizures: denies Concussions/TBI: denies LMP: 10/2024 Perimenopausal Ht: 5'7 Wt: 197 lbs ALL: sulfa, IV media contrast Surgical History H/O bladder repair surgery Hx of cholecystectomy Family History: father: ADHD Social History: Raised by mother and adoptive father. Father remarried, has 3 half siblings. 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 Grad HS, Program completed as hospital medical biller. Trauma History: None reported Diagnostics Vital Signs (24Hr): Vital Signs - 24 hr 07/17/25 10:18 Temperature 98.1 F Pulse Rate 80 Blood Pressure 80/58 L BMI result Body Mass Index 31.6 Meds/Allergies Meds Home Medications ?Medication ?Instructions ?Recorded ?Confirmed ?Type duloxetine 60 mg capsule,delayed 60 mg PO BID 02/10/23 07/17/25 History release pregabalin 300 mg capsule 300 mg PO BID 02/10/23 07/17/25 History buprenorphine 20 mcg/hour weekly 1 patch topical QWEEK 07/17/25 07/17/25 History transdermal patch (Butrans) dexmethylphenidate 35 mg 35 mg PO QAM 07/17/25 07/17/25 History capsule,extended release [id number] estradiol 0.05 mg-norethindrone 1 patch transdermal DIRECTED 07/17/25 07/17/25 History 0.14 mg/24 hr semiwkly transderm patch (CombiPatch) oxaprozin 600 mg tablet 1,200 mg PO DAILY 07/17/25 07/17/25 History quetiapine 200 mg tablet,extended 200 mg PO BEDTIME 07/17/25 07/17/25 History release 24 hr quetiapine 50 mg tablet,extended 50 mg PO BEDTIME 07/17/25 07/17/25 History release 24 hr riboflavin (vitamin B2) 400 mg 400 mg PO DAILY 07/17/25 07/17/25 History tablet rizatriptan 5 mg tablet See Rx Instructions .Route .COMPLEX 07/17/25 07/17/25 History tirzepatide (weight loss) 5 mg/0.5 5 mg subcut QWEEK 07/17/25 07/17/25 History mL subcutaneous pen injector (Zepbound) topiramate 50 mg tablet 50 mg PO BID PRN migraine 07/17/25 07/17/25 History trazodone 100 mg tablet 200 mg PO BEDTIME 07/17/25 07/17/25 History Allergies Allergies Allergy/AdvReac Type Severity Reaction Status Date / Time Iodinated Contrast Media (IV Allergy Eye Verified 02/10/23 14:43 Contrast Dye) Swelling Sulfa (Sulfonamide Allergy Unknown Verified 02/10/23 14:43 Antibiotics) Mental Status Exam Mental Status Exam Narrative: Alert, oriented, in no acute distress. Calm, cooperative, engaged. No psychomotor agitation or neurovegetative retardation. Eye contact maintained. Mood depressed, affect constricted. Speech normal. Thought process linear, coherent. Thought content related to stressors, transient hopelessness, denies SI or HI. No paranoia or delusional content elicited. No evidence of psychosis. Insight and judgment - fair but adequate. Assessment & Plan Assessment & Plan (1) Bipolar disorder, unspecified: Status: Acute Code(s): F31.9 - Bipolar disorder, unspecified (2) Anxiety: Status: Acute Code(s): F41.9 - Anxiety disorder, unspecified (3) Attention-deficit hyperactivity disorder, combined type: Status: Acute Code(s): F90.2 - Attention-deficit hyperactivity disorder, combined type (4) Opioid dependence, in remission: Status: Acute Code(s): F11.21 - Opioid dependence, in remission Assessment and Plan: on partial agonist Plan Admit to [facility] VS reviewed on admission lower night risperidone from 2 to 1 mg qhs start risperidone 0.5 mg BID (AM and afternoon) start benztropine 0.5 mg BID will order propranolol 10 mg (for now as prn Panic attack (?akithisia/eps) if HR >80) may consider using BID (AM/afternoon) continue other medication Routine lab work as indicated EKG, routine for baseline QTc for medication considerations as indicated UDS as indicated MassPat reviewed Continue to monitor as per protocol Patient educated on: diagnosis, medication risk/benefits, substance abuse and medical condition Informed Consent: understands Reason for continued partial hosp. stay Substantial Risk for: inability to function, rapid decompensation and med/psych decompensation Certification I certify that partial hospital treatment is medically necessary due to the symptoms and problems resulting from the patient's mental illness and the failure to treat the patient at the partial hospital level of care would likely result in the patient requiring inpatient psychiatric care which could not be prevented at a less intensive level of care. Time Spent With Patient Time: Total time managing care of this patient today __90__ minutes.
--- NOTE | 2025-07-17 14:28 | PC.ADMIT ---
Patient is a 45 year old female who was referred to [facility] by her prescriber/therapist secondary to increased anxiety sxs with panic attacks. Patient can not identify any precept to her symptoms or having any stresses that could contribute to her current symptoms. Patient reports her supports stating, Parents that I live with and friends. Patient is alert and oriented x4. She is calm and cooperative. She presents with anxious mood and affect. She denied SI, no HI. She was given a copy of her safety plan if needed. Patient reports she has a history of being on may different prescription medications including Percocet, Oxycodone and Morphine for Fibromyalgia pain and a history of being on Methadone. Patient reports she is currently taking Marijuana for pain at night. She reports she is also prescribed Lyrica and a Butrans patch for pain. Medications updated with patient and patient's pharmacy. She reports taking medications as prescribed. BP 80/58 P 80. Patient denied feelings of lightheadedness or dizziness. She was encouraged to increase her fluid intake and was drinking fluids that she brought to the program. Dr. Galvan is aware.
[2025-07-18 08:55] LABS: Cannabinoid Screen Urine POSITIVE (Not Detect)
[2025-07-19 14:03] VITALS: BP 90/62; PULSE 80
--- NOTE | 2025-07-19 14:03 | PC.NURSE ---
Patient stated her dog bite her yesterday. She showed me an area on her R forearm that is bruised and a small area inside the bruise that is scabbed over. No open sores. Patient to put antibiotic ointment on when home. Patient washed the area and I placed a band aid on the area with antibiotic ointment.
--- NOTE | 2025-07-20 15:22 | HO.PHP ---
Pt's case was opened and reviewed in treatment teams.
--- NOTE | 2025-07-24 08:59 | PC.NURSE ---
Tricia came to the program this morning c/o issues with her R eye. Her R eye lid appears red and swollen. She stated she thinks she has a sty. She stated she has a doctors appointment at 10:30 thus will not be able to attend the program today. She plans on returning to the program tomorrow. [facility] staff is aware.
[2025-07-26 12:33] VITALS: BP 100/72; PULSE 80
--- NOTE | 2025-07-26 20:48 | P.PNPSP_ITS ---
Subjective Subjective Date of Service: 07/25/25 Reason For Visit: ADHD,depression,panic attacks Interim History: Patient reports having a panic attack full-blown panic attack? on her 2nd day here, and was not able to medicate herself papillae as medications were still not picked up from the pharmacy. She has had a meeting with outpatient provider for check-in only, no changes and continues on Savella 200 mg twice a day duloxetine 60 mg twice a day. is agreeable with our plan around. Medication Compliance: Yes Side effects from medications: No Attending Groups: Yes Review of Systems Acute medical concerns: No Mental Status Exam Mental Status Exam Narrative: Alert, oriented, in no acute distress. Calm, cooperative, engaged. No psychomotor agitation or neurovegetative retardation. Eye contact maintained. Mood less depressed, affect brighter. Speech normal. Thought process linear, coherent. Thought content related to stressors, denies SI or HI. No paranoia or delusional content elicited. No evidence of psychosis. Insight and judgment - fair - good Diagnostics Vital Signs (24Hr): BMI result Body Mass Index 31.6 Assessment & Plan Assessment & Plan (1) Bipolar disorder, unspecified: Status: Acute Code(s): F31.9 - Bipolar disorder, unspecified (2) Anxiety: Status: Acute Code(s): F41.9 - Anxiety disorder, unspecified (3) Attention-deficit hyperactivity disorder, combined type: Status: Acute Code(s): F90.2 - Attention-deficit hyperactivity disorder, combined type (4) Opioid dependence, in remission: Status: Acute Code(s): F11.21 - Opioid dependence, in remission Assessment and Plan: on partial agonist Plan Admit to [facility] lower night risperidone from 2 to 1 mg qhs start risperidone 0.5 mg BID (AM and afternoon) start benztropine 0.5 mg BID will order propranolol 10 mg (for now as prn Panic attack (?akithisia/eps) if HR >80) may consider using BID (AM/afternoon) continue other medication Routine lab work as indicated EKG, routine for baseline QTc for medication considerations as indicated UDS as indicated MassPat reviewed Continue to monitor Patient educated on: diagnosis, medication risk/benefits and substance abuse Informed Consent: understands Reason for contiued partial hosp. stay Substantial Risk for: inability to function and med/psych decompensation Certification I certify that partial hospital treatment is medically necessary due to the symptoms and problems resulting from the patient's mental illness and the failure to treat the patient at the partial hospital level of care would likely result in the patient requiring inpatient psychiatric care which could not be prevented at a less intensive level of care. Total time managing care of this patient today ___30_ minutes. Discharge Plan Discharge Attending provider: Sayda Galvan Medications: New lorazepam 0.5 mg tablet 0.5 mg PO DAILY PRN (Reason: panic attacks) Qty: 10 0RF Rx Instructions: for panic attacks - may repeat dose x1 after 30 min Savella 25 mg tablet 25 mg PO BID Qty: 60 0RF Rx Instructions: - plan to taper - Continued trazodone 100 mg tablet 200 mg PO BEDTIME Rx Instructions: Patient stated she is prescribed two and a half tabs at HS. Pharmacy stated two tabs at HS. oxaprozin 600 mg tablet 1,200 mg PO DAILY Rx Instructions: TAKE TWO TABLETS BY MOUTH EVERY DAY WITH FOOD CombiPatch 0.05-0.14 mg/24 hr patch semiweekly 1 patch transdermal DIRECTED Rx Instructions: APPLY A NEW PATCH TWICE WEEKLY (EVERY 3 TO 4 DAYS)TO LOWER ABDOMEN ON CLEAN, DRY, INTACT SKIN FOR SYMPTOMS OF MENOPAUSE topiramate 50 mg tablet 50 mg PO BID PRN (Reason: migraine) quetiapine 200 mg tablet extended release 24 hr 200 mg PO BEDTIME quetiapine 50 mg tablet extended release 24 hr 50 mg PO BEDTIME buprenorphine [Butrans] 20 mcg/hour patch weekly 1 patch topical QWEEK dexmethylphenidate 35 mg capsule,ER biphasic 50-50 35 mg PO QAM riboflavin (vitamin B2) 400 mg tablet 400 mg PO DAILY Zepbound 5 mg/0.5 mL pen injector 5 mg subcut QWEEK rizatriptan 5 mg tablet See Rx Instructions .ROUTE .COMPLEX Rx Instructions: TAKE 1 TABLET NEEDED FOR MIGRAINE - MAY REPEAT IN 2 HOURS IF NEEDED - DO NOT EXCEED 2 DOSES IN 24 HOURS risperidone 1 mg tablet 1 mg PO BEDTIME Qty: 30 0RF risperidone 0.5 mg tablet 0.5 mg PO BID Qty: 60 0RF Rx Instructions: in AM and afternoon 3pm duloxetine 60 mg capsule,delayed release(DR/EC) 60 mg PO BID pregabalin 300 mg capsule 300 mg PO BID Changed benztropine 0.5 mg tablet See Rx Instructions .ROUTE .COMPLEX Qty: 30 0RF Rx Instructions: take one tablet po QHS as needed for restlessness/stiffness/EPS; take one tablet daily PRN anxiety attack (with PRN risperidone) propranolol 10 mg tablet 10 mg PO DAILY PRN (Reason: anxiety attack) Qty: 20 0RF Rx Instructions: may repeat dose x 1 after 30 min (if HR >80) Discontinued risperidone 2 mg tablet 2 mg PO BID PRN (Reason: Anxiety) Savella 100 mg tablet 100 mg PO BID Stand Alone Forms: Patient Portal Discharge page Patient Education: ADHD in Adults (ED), Bipolar Disorder (ED), Bipolar Disorder (DC) Print Language: Libyan
--- NOTE | 2025-08-02 20:16 | HO.PHPPROGNO ---
Subjective Subjective Date of Service: 07/31/25 Reason For Visit: ADHD,depression,panic attacks Interim History: Patient seen for follow-up. She reports doing better with medication changes. We have had to lower the doses of her risperidone, both the PRN she was taking for panic sx (which comprised hefty dosing of the risperidone (1 mg q 2 hours x 2 doses, and 2 mg after 20 min) often taking up toward 4 mg with 2-3 hours. And seemed to only perpetuate the panic attacks. We also redistributed her standing dose of risperidone 2 mg nightly, to 0.5 in AM/0.5 mg midday/ 1 mg at bedtime). Doing good now, I still haven't had any panic attacks since adjusting the risperdal . Mood is good, just experiencing regular anxiety (generalized anxiety). ROS negative. She presents her bottle of lorazepam and notes that she has not taken any further tablets since that initial panic attack at the start of program (where she needed 1 mg). She reports feeling conflicted, bc on one hand she is relieved that she has not had any further panic attacks and is cautiously optimistic we are getting these under control. On the other hand she is getting anxious that her OP provider will not be open to prescribing the lorazepam. She has no intention to take any lorazepam aside from severe panic attacks (and could potentially be on her current bottle for some time). She notes just the notion that she has them in her possession/access to the medication is often itself relieving, however she is concerned about being able to access a script at some point in the future sooner since her psych provider generally wont prescribe them. Patient requests that I speak with her PCP Yousif Draper, whom we were able to reach and discussed current treatment plan and rationale. Patient responded well to supportive stance. Medication Compliance: Yes Side effects from medications: Yes (resolving) Attending Groups: Yes Review of Systems Acute medical concerns: No Mental Status Exam Mental Status Exam Narrative: Alert, oriented, in no acute distress. Calm, cooperative, engaged. No psychomotor agitation or neurovegetative retardation. Eye contact maintained. Mood anxious , affect brighter. Speech normal. Thought process linear, coherent. Thought content related to stressors, medications, denies SI or HI. No paranoia or delusional content elicited. No evidence of psychosis. Insight and judgment - fair - good Diagnostics Vital Signs (24Hr): BMI result Body Mass Index 31.6 Assessment & Plan Assessment & Plan (1) Bipolar disorder, unspecified: Status: Acute Code(s): F31.9 - Bipolar disorder, unspecified (2) Anxiety: Status: Acute Code(s): F41.9 - Anxiety disorder, unspecified (3) Attention-deficit hyperactivity disorder, combined type: Status: Acute Code(s): F90.2 - Attention-deficit hyperactivity disorder, combined type (4) Opioid dependence, in remission: Status: Acute Code(s): F11.21 - Opioid dependence, in remission Assessment and Plan: on partial agonist (5) Substance or medication-induced anxiety disorder: Status: Acute Code(s): F19.980 - Other psychoactive substance use, unspecified with psychoactive substance-induced anxiety disorder Plan continue PHP continue risperidone 1 mg qhs continue risperidone 0.5 mg BID (AM and afternoon) continue benztropine 0.5 mg QHS and PRN BID if needed continue propranolol 10 mg (for now as prn Panic attack (?akithisia/eps) if HR >80) may consider using BID (AM/afternoon) continue other medication Routine lab work as indicated EKG, routine for baseline QTc for medication considerations as indicated UDS as indicated MassPat reviewed Continue to monitor Patient educated on: diagnosis and medication risk/benefits Informed Consent: understands Reason for contiued partial hosp. stay Substantial Risk for: rapid decompensation and med/psych decompensation Certification I certify that partial hospital treatment is medically necessary due to the symptoms and problems resulting from the patient's mental illness and the failure to treat the patient at the partial hospital level of care would likely result in the patient requiring inpatient psychiatric care which could not be prevented at a less intensive level of care. Total time managing care of this patient today _40___ minutes. Discharge Plan Discharge Attending provider: Sayda Galvan Medications: New lorazepam 0.5 mg tablet 0.5 mg PO DAILY PRN (Reason: panic attacks) Qty: 10 0RF Rx Instructions: for panic attacks - may repeat dose x1 after 30 min Savella 25 mg tablet 25 mg PO BID Qty: 60 0RF Rx Instructions: - plan to taper - Continued trazodone 100 mg tablet 200 mg PO BEDTIME Rx Instructions: Patient stated she is prescribed two and a half tabs at HS. Pharmacy stated two tabs at HS. oxaprozin 600 mg tablet 1,200 mg PO DAILY Rx Instructions: TAKE TWO TABLETS BY MOUTH EVERY DAY WITH FOOD CombiPatch 0.05-0.14 mg/24 hr patch semiweekly 1 patch transdermal DIRECTED Rx Instructions: APPLY A NEW PATCH TWICE WEEKLY (EVERY 3 TO 4 DAYS)TO LOWER ABDOMEN ON CLEAN, DRY, INTACT SKIN FOR SYMPTOMS OF MENOPAUSE topiramate 50 mg tablet 50 mg PO BID PRN (Reason: migraine) quetiapine 200 mg tablet extended release 24 hr 200 mg PO BEDTIME quetiapine 50 mg tablet extended release 24 hr 50 mg PO BEDTIME buprenorphine [Butrans] 20 mcg/hour patch weekly 1 patch topical QWEEK dexmethylphenidate 35 mg capsule,ER biphasic 50-50 35 mg PO QAM riboflavin (vitamin B2) 400 mg tablet 400 mg PO DAILY Zepbound 5 mg/0.5 mL pen injector 5 mg subcut QWEEK rizatriptan 5 mg tablet See Rx Instructions .ROUTE .COMPLEX Rx Instructions: TAKE 1 TABLET NEEDED FOR MIGRAINE - MAY REPEAT IN 2 HOURS IF NEEDED - DO NOT EXCEED 2 DOSES IN 24 HOURS risperidone 1 mg tablet 1 mg PO BEDTIME Qty: 30 0RF risperidone 0.5 mg tablet 0.5 mg PO BID Qty: 60 0RF Rx Instructions: in AM and afternoon 3pm duloxetine 60 mg capsule,delayed release(DR/EC) 60 mg PO BID pregabalin 300 mg capsule 300 mg PO BID Changed benztropine 0.5 mg tablet See Rx Instructions .ROUTE .COMPLEX Qty: 30 0RF Rx Instructions: take one tablet po QHS as needed for restlessness/stiffness/EPS; take one tablet daily PRN anxiety attack (with PRN risperidone) propranolol 10 mg tablet 10 mg PO DAILY PRN (Reason: anxiety attack) Qty: 20 0RF Rx Instructions: may repeat dose x 1 after 30 min (if HR >80) Discontinued risperidone 2 mg tablet 2 mg PO BID PRN (Reason: Anxiety) Savella 100 mg tablet 100 mg PO BID Stand Alone Forms: Patient Portal Discharge page Patient Education: ADHD in Adults (ED), Bipolar Disorder (ED), Bipolar Disorder (DC) Print Language: Trinidadian
--- NOTE | 2025-08-03 15:47 | P.PNPSP_ITS ---
Subjective Subjective Date of Service: 08/03/25 Reason For Visit: ADHD,depression,panic attacks Interim History: Patient seen for follow-up, anticipating discharge at the end of program today.? Reports no acute issues or concerns. She continues on slow taper off of milnacipran. Currently down to 50 BID and scheduled to drop to 50/25 tonight (schedule written out for patient last time we met) Medication compliant, medications well-tolerated. Denies any adverse effects.? I'm doing good, no panic attacks still She expresses feeling cautiously optimistic. Also notes this is the longest she has gone with out a panic attack. Mood is stable. Affect brightens and is appropriate. She shares that she in fact struggles with understanding /assessing her own mood state (she suspected this is lifelong). ?She says she never heard of the term alexithymia before, but feels that accurately describes her and was fascinated with knowing more about it. Overall mood is stable, she denies any fluctuations. Denies any hopelessness or SI. Denies thoughts of harming self or others at this time. Denies any aggressive ideation or HI. Denies any paranoia or AH or VH. Sleep, appetite, energy stable. Medication Compliance: Yes Side effects from medications: No Attending Groups: Yes Review of Systems Acute medical concerns: No Mental Status Exam Mental Status Exam Narrative: Alert, oriented, in no acute distress. Calm, cooperative. Mood stable, affect appropriate. Speech normal. Thought process linear, coherent, more goal- directed. Thought content related to stressors, future-oriented, denies any helplessness, hopelessness or SI.? No aggressive ideation or HI. No paranoia or delusional content elicited. No evidence of psychosis. Insight and judgment fair-good. Diagnostics Vital Signs (24Hr): BMI result Body Mass Index 31.6 Assessment & Plan Assessment & Plan (1) Bipolar disorder, unspecified: Status: Acute Code(s): F31.9 - Bipolar disorder, unspecified (2) Anxiety: Status: Acute Code(s): F41.9 - Anxiety disorder, unspecified (3) Substance or medication-induced anxiety disorder: Status: Acute Code(s): F19.980 - Other psychoactive substance use, unspecified with psychoactive substance-induced anxiety disorder Assessment and Plan: (Resolving) (4) Attention-deficit hyperactivity disorder, combined type: Status: Acute Code(s): F90.2 - Attention-deficit hyperactivity disorder, combined type (5) Opioid dependence, in remission: Status: Acute Code(s): F11.21 - Opioid dependence, in remission Assessment and Plan: on partial agonist Plan Discharge from [facility] Continue regular medications? Refills sent to pharmacy Will defer further medication management to outpatient provider *Safety plan reviewed *Discharge diagnoses, treatment course, discharge plan have been reviewed with patient (including medication regime, medication management, potential side effects) as well as treatment rationale were also revisited *Discharge paperwork signed and given to patient, copy sent for scanning to chart Patient educated on: diagnosis and medication risk/benefits Informed Consent: understands Reason for contiued partial hosp. stay Substantial Risk for: stable for discharge Certification I certify that partial hospital treatment is medically necessary due to the symptoms and problems resulting from the patient's mental illness and the failure to treat the patient at the partial hospital level of care would likely result in the patient requiring inpatient psychiatric care which could not be prevented at a less intensive level of care. Total time managing care of this patient today _30___ minutes. Discharge Plan Discharge Attending provider: Sayda Galvan Medications: New lorazepam 0.5 mg tablet 0.5 mg PO DAILY PRN (Reason: panic attacks) Qty: 10 0RF Rx Instructions: for panic attacks - may repeat dose x1 after 30 min Savella 25 mg tablet 25 mg PO BID Qty: 60 0RF Rx Instructions: - plan to taper - Continued trazodone 100 mg tablet 200 mg PO BEDTIME Rx Instructions: Patient stated she is prescribed two and a half tabs at HS. Pharmacy stated two tabs at HS. oxaprozin 600 mg tablet 1,200 mg PO DAILY Rx Instructions: TAKE TWO TABLETS BY MOUTH EVERY DAY WITH FOOD CombiPatch 0.05-0.14 mg/24 hr patch semiweekly 1 patch transdermal DIRECTED Rx Instructions: APPLY A NEW PATCH TWICE WEEKLY (EVERY 3 TO 4 DAYS)TO LOWER ABDOMEN ON CLEAN, DRY, INTACT SKIN FOR SYMPTOMS OF MENOPAUSE topiramate 50 mg tablet 50 mg PO BID PRN (Reason: migraine) quetiapine 200 mg tablet extended release 24 hr 200 mg PO BEDTIME quetiapine 50 mg tablet extended release 24 hr 50 mg PO BEDTIME buprenorphine [Butrans] 20 mcg/hour patch weekly 1 patch topical QWEEK dexmethylphenidate 35 mg capsule,ER biphasic 50-50 35 mg PO QAM riboflavin (vitamin B2) 400 mg tablet 400 mg PO DAILY Zepbound 5 mg/0.5 mL pen injector 5 mg subcut QWEEK rizatriptan 5 mg tablet See Rx Instructions .ROUTE .COMPLEX Rx Instructions: TAKE 1 TABLET NEEDED FOR MIGRAINE - MAY REPEAT IN 2 HOURS IF NEEDED - DO NOT EXCEED 2 DOSES IN 24 HOURS risperidone 1 mg tablet 1 mg PO BEDTIME Qty: 30 0RF risperidone 0.5 mg tablet 0.5 mg PO BID Qty: 60 0RF Rx Instructions: in AM and afternoon 3pm duloxetine 60 mg capsule,delayed release(DR/EC) 60 mg PO BID pregabalin 300 mg capsule 300 mg PO BID Changed benztropine 0.5 mg tablet See Rx Instructions .ROUTE .COMPLEX Qty: 30 0RF Rx Instructions: take one tablet po QHS as needed for restlessness/stiffness/EPS; take one tablet daily PRN anxiety attack (with PRN risperidone) propranolol 10 mg tablet 10 mg PO DAILY PRN (Reason: anxiety attack) Qty: 20 0RF Rx Instructions: may repeat dose x 1 after 30 min (if HR >80) Discontinued risperidone 2 mg tablet 2 mg PO BID PRN (Reason: Anxiety) Savella 100 mg tablet 100 mg PO BID Stand Alone Forms: Patient Portal Discharge page Patient Education: ADHD in Adults (ED), Bipolar Disorder (ED), Bipolar Disorder (DC) Print Language: Mauritian
== END 2025-08-03 23:59 | disposition home or self-care (01) ==
LOC: HO.PHPA 10:30
PROVIDERS: Visit Provider Psychiatry & Neurology Psychiatry
DX: F31.9 Bipolar disorder, unspecified (principal); F41.9 Anxiety disorder, unspecified; F90.2 Attention-deficit hyperactivity disorder, combined type; F11.20 Opioid dependence, uncomplicated; F19.980 Other psychoactive substance use, unspecified with psychoactive substance-induced anxiety disorder; Z79.899 Other long term (current) drug therapy
CPT/HCPCS: 80307; 90791; 90853

== ENCOUNTER → 2025-08-03 10:30 | Outpatient (BNV) | payer OTHER, SELFPAY | PROVIDERS: Visit Provider Psychiatry & Neurology Psychiatry | DX: F31.9 Bipolar disorder, unspecified (principal); F41.9 Anxiety disorder, unspecified; F90.2 Attention-deficit hyperactivity disorder, combined type; F11.21 Opioid dependence, in remission | CPT/HCPCS: 99499 ==